=== PATIENT | female | born 1945 | race Caucasian/White ===

== ENCOUNTER → 2019-02-28 | Outpatient (CLI) | payer MEDICARE, OTHER ==
[~2019-02-28] MED LIST: Bactrim Ds Tab1 EACH PO; CALCIUM/VIT D PO; CARB200 PO; CITA20; CITA20 PO; CYCL10 PO; ESCI10; ESCI10 PO; FENO48 PO; FENO54; FENO67 PO; FISH1000 PO; FURO40; FURO40 PO; Flonase 0.05% N16 GM; Flovent Diskus50 MCG; GABA600 PO; HYDACE5 PO; IBUP800 PO; LOFIBRA; METF500; METF500 PO; METO50ER; METO50ER PO; Norco 5-325 Ta1 EACH PO; POTA10T PO; POTCHL20ER; PRED20 PO; PROACE100 PO; QUIN10 PO; QVAR7.3 G1; RXHYDACE PO; RXPROACE PO; SULI150; TRAZ100; TRAZ50; TRAZ50 PO
== END | disposition home or self-care (01) ==
LOC: LAB SHORT 13:35 → LAB EV 13:35
DX: L30.4 Erythema intertrigo (principal)
CPT/HCPCS: 87070; 87077; 87147; 87186; 87205

== ENCOUNTER 2024-10-30 16:11 | Emergency (ER) | payer OTHER ==
[~2024-10-30] VITALS: Ht 165.1 cm; Wt 72.6 kg
[~2024-10-30 16:11] MED LIST changes: +ALEN70 PO; +ATOR20; +GABA400
[2024-10-30 16:41] VITALS: BP 140/74
[2024-10-30] MEDS ORDERED: Indomethacin25 MG PO (17:24)
[2024-10-30] MEDS ORDERED: Norco 5-325 Ta1 EACH PO (17:31)
== END 2024-10-30 17:42 | disposition home or self-care (01) ==
LOC: ER 16:11
DX: M10.9 Gout, unspecified (principal); E78.5 Hyperlipidemia, unspecified; E11.40 Type 2 diabetes mellitus with diabetic neuropathy, unspecified; I10 Essential (primary) hypertension; Z87.891 Personal history of nicotine dependence; Z79.51 Long term (current) use of inhaled steroids; Z79.899 Other long term (current) drug therapy; Z88.0 Allergy status to penicillin; Z88.6 Allergy status to analgesic agent; Z91.048 Other nonmedicinal substance allergy status
CPT/HCPCS: 73620; 99283-25